=== PATIENT | female | born 1960 | race Caucasian/White ===

== ENCOUNTER 2017-02-09 15:05 | Emergency (ER) | payer OTHER ==
[~2017-02-09] VITALS: Ht 172.7 cm; Wt 73.5 kg
[~2017-02-09 15:05] MED LIST: BACTRIM DS 8001 TAB PO
--- NOTE | 2017-02-09 16:53 | ED UPPER/LOWER EXTREMITY COMPL ---
History of Present Illness General Chief Complaint: Upper Extremity Injury Stated Complaint: INFECTION ON RIGHT ARM Source: patient Exam Limitations: no limitations Vital Signs & Intake/Output Vital Signs & Intake/Output Vital Signs Date Time Temp Pulse Resp B/P Pulse O2 O2 Flow FiO2 Ox Delivery Rate 02/09 1701 98.1 92 15 102/64 98 Room Air Room Air 02/09 1516 97.0 112 16 110/63 92 Room Air Allergies Coded Allergies: MDX - PCN (penicillin) (PCN (PENICILLIN)) (Intermediate, REACTION A KID 07/29) Reconcile Medications Sulfamethoxazole/Trimethopri (Bactrim Ds 800 MG-160 MG) 1 TAB TAB 1 TAB PO BID SKIN INFECTION Triage Note: PT STATES SHE FELL LAST WEEK AND SHE CUT HER RIGHT ARM AND STATES SHE THINKS IT MAY BE GETTING INFECTED Triage Nurses Notes Reviewed? yes Onset: Abrupt Duration: constant Timing: recent history Severity: moderate Severity Numbers: 5 Pain/Injury Location: Left: Elbow. Method of Injury: fall No Modifying Factors: none HPI: Patient is a 56-year-old female with a past medical history of hep C who presents emergency room stating that approximately 9-10 days ago she was ambulating at night tripped on a 2 x 4 striking the the bilateral aspects of her forearms to the ground where she suffered a skin abrasion to her right lateral aspect of her forearm patient has been applying bacitracin once a day and applied few treatments of peroxide and is concerned of infection Does state that is discharging ORANGE COLOR tinted discharge (FRANCISCO [facility]) Past History Travel History Traveled to [place] past 21 day No Medical History Any Pertinent Medical History? see below for history Neurological: NEUROPATHY Cardiovascular: FEMORAL STENTS Gastrointestinal: COLON POLYPS Hepatic: cirrhosis, hepatitis C Surgical History Surgical History: non-contributory Psychosocial History What is your primary language Burkinan Tobacco Use: Current Daily Use Daily Tobacco Use Amount/Type: => 5 Cigarettes daily ETOH Use: denies use Illicit Drug Use: denies illicit drug use Family History Hx Contributory? No (FRANCISCO [facility]) Review of Systems Review of Systems Constitutional: Reports: no symptoms. EENTM: Reports: no symptoms. Respiratory: Reports: no symptoms. Cardiovascular: Reports: no symptoms. Gastrointestinal/Abdominal: Reports: no symptoms. Genitourinary: Reports: no symptoms. Musculoskeletal: Reports: no symptoms. Skin: Reports: see HPI. Neurological/Psychological: Reports: no symptoms. Hematologic/Endocrine: Reports: no symptoms. Immunological: Reports: no symptoms. All Other Systems: Reviewed and Negative (FRANCISCO [facility]) Physical Exam Physical Exam General Appearance: well developed/nourished, no apparent distress, alert, awake Neurologic/Tendon: normal sensation, normal motor functions, normal tendon functions, responds to pain, no evidence tendon injury, no pulse deficit Skin: warm/dry Lymphatic: no anterior cervical eboni Comments: Well-developed well-nourished no apparent distress. HEENT: Atraumatic, extraocular motion intact Neck: Supple, no lymphadenopathy Back: Nontender Respiratory: No respiratory distress Extremities: No edema, full range of motion Right elbow-see diagram below full active range of motion Neuro: Alert and oriented x3 Psych: Mood affect normal, normal memory normal judgment. Diagram Right Arm Back 1) 3 cm x 3 cm superficial well-healing skin abrasion noted No purulent discharge no active bleeding and no surrounding erythema warmth (FRANCISCO [facility]) Progress Differential Diagnosis: arterial insufficiency, compartment syndrome, contusion, dislocation, gout, septic arthritis, sprain, tendon injury Plan of Care: The skin abrasion of the right elbow looks well-healing and no concern at this time of infection. I applied TEFLA AND KERLEX to the wounds and instructed patient on wound care techniques and to return to emergency room if signs of infection occur and they will comply (FRANCISCO [facility]) Departure Departure Disposition: HOME OR SELF CARE Condition: Stable Clinical Impression Primary Impression: Abrasion of skin Referrals: UNKNOWN (PCP/Family) Additional Instructions: As discussed TRY to leave area dry and clean and open as much as possible to improve healing. Please APPLY THE bandages provided to YOU IN the emergency room if needed for discharge. If symptoms worsen or if you notice signs of infection redness, pain, swelling, discharge return to emergency room Follow-up with your primary care doctor in one week for recheck of symptoms. Departure Forms: Customer Survey General Discharge Information ([facility]CO [facility]) PA/INCIDENT RESPONSE ANALYST Co-Sign Statement Statement: ED Attending supervision documentation- [] I saw and evaluated the patient. I have also reviewed all the pertinent lab results and diagnostic results. I agree with the findings and the plan of care as documented in the PA's/INCIDENT RESPONSE ANALYST's documentation. [X] I have reviewed the ED Record and agree with the PA's/INCIDENT RESPONSE ANALYST's documentation. [] Additions or exceptions (if any) to the PAs/INCIDENT RESPONSE ANALYST's note and plan are summarized below: [] (ZAKI HOUSE,ABDIEL)
[2017-02-09 17:01] VITALS: BP 102/64
== END 2017-02-09 17:14 ==
LOC: ERH 15:05
DX: S50.811A Abrasion of right forearm, initial encounter (principal); S50.812A Abrasion of left forearm, initial encounter; W18.09XA Striking against other object with subsequent fall, initial encounter; Y93.01 Activity, walking, marching and hiking; Y92.9 Unspecified place or not applicable

== ENCOUNTER 2017-03-22 11:58 | Emergency (ER) | payer OTHER ==
[~2017-03-22] VITALS: Ht 172.7 cm; Wt 72.6 kg
--- NOTE | 2017-03-22 12:02 | ED GENERAL ADULT ---
History of Present Illness General Chief Complaint: Altered Mental Status Stated Complaint: BIBA FOR ALTERED MENTAL STATUS Source: family, old records, EMS Exam Limitations: confusion Vital Signs & Intake/Output Vital Signs & Intake/Output Vital Signs Date Time Temp Pulse Resp B/P B/P Pulse O2 O2 Flow FiO2 Mean Ox Delivery Rate 03/22 1418 96.8 99 18 125/58 98 03/22 1257 96 Room Air 03/22 1200 96.3 93 18 116/66 100 Room Air Allergies Coded Allergies: Penicillins (Intermediate, REACTION A KID 03/22/17) Reconcile Medications Sulfamethoxazole/Trimethopri (Bactrim Ds 800 MG-160 MG) 1 TAB TAB 1 TAB PO BID SKIN INFECTION Triage Nurses Notes Reviewed? yes HPI: Patient brought in by ambulance for acute confusion and potential lower GI bleed. Patient has a history of hepatitis C cirrhosis. Patient lives at home with her daughter. Her daughter noticed that she was confused today and the bathroom smelled like it did when she had a lower GI bleed in the past. The daughter did not notice any blood in the toilet. The daughter states that she did not see her at all yesterday but her boyfriend states that she seemed a little confused yesterday. Patient is unable to provide any history. Past History Travel History Traveled to [place] past 21 day No Medical History Any Pertinent Medical History? see below for history Neurological: NEUROPATHY Cardiovascular: FEMORAL STENTS Gastrointestinal: COLON POLYPS Hepatic: cirrhosis, hepatitis C Surgical History Surgical History: non-contributory Psychosocial History What is your primary language Armenian Tobacco Use: Current Daily Use ETOH Use: occasional use Illicit Drug Use: PAST USE Family History Hx Contributory? No ED Sepsis Exam Date of Focused Sepsis Exam: 03/22/17 Time of Focused Sepsis Exam: 1329 Sepsis Cardiac Exam: Regular Rate/Rhythm Sepsis Resp Exam: CTA Sepsis Cap Refill Exam: <2 Sec Sepsis Peripheral Pulse Exam: Normal Sepsis Peripheral Pulse Location: Radial Sepsis Skin Color Exam: Normal for Ethnicity Skin Temp/Moisture Exam: Warm/Dry Review of Systems Review of Systems Constitutional: Reports: see HPI. GI: Reports: see HPI. Neurological/Psychological: Reports: see HPI. Physical Exam Physical Exam General Appearance: anxious, severe distress Head: atraumatic Eyes: Bilateral: PERRL. Ears, Nose, Throat: normal pharynx, normal ENT inspection, hearing grossly normal Neck: normal inspection, supple, full range of motion Respiratory: normal breath sounds, chest non-tender, no respiratory distress, lungs clear Cardiovascular: regular rate/rhythm, normal peripheral pulses Gastrointestinal: normal bowel sounds, soft, tenderness (DIFFUSLEY) Rectal: DARK TARRY STOOL, HEME POSITIVE Neurologic/Psych: disoriented x 3 Skin: intact, warm/dry Core Measures ACS in differential dx? No CVA/TIA Diagnosis: No Severe Sepsis Present: No Septic Shock Present: No Progress Differential Diagnoses I considered the following diagnoses in my evaluation of the patient: [GI BLEED, HEPATIC FAILURE, SBP, SEPSIS] Plan of Care: Orders Procedure Date/time Status LACTIC ACID 03/22 1502 Active Restraint- Medical 03/22 1354 Active CULTURE,BODY FLUID 03/22 1350 Active BODY FLUID CELL COUNT 03/22 1350 Active BODY FLUID ALBUMIN 03/22 1350 Active BLOOD CULTURE 03/22 1305 Active Shelley, Insertion/Removal/Asses 03/22 1259 Active CULTURE,URINE 03/22 1259 Active URINE DRUGS OF ABUSE 03/22 1230 Complete Add-on Test (ER Only) 03/22 1227 Active PARTIAL THROMBOPLASTIN TIME 03/22 1216 Complete PROTHROMBIN TIME 03/22 1216 Complete Straight Cath 03/22 1202 Active URINALYSIS 03/22 1202 Complete TROPONIN LEVEL 03/22 1202 Complete AMMONIA 03/22 1202 Complete LIPASE 03/22 1202 Complete LACTIC ACID 03/22 1202 Complete ETHANOL 03/22 1202 Complete COMPREHENSIVE METABOLIC PANEL 03/22 1202 Complete CBC WITHOUT DIFFERENTIAL 03/22 1202 Complete AMYLASE 03/22 1202 Complete EKG 03/22 1202 Active TYPE & SCREEN (NOT X-MATCH) 03/22 1202 Complete Laboratory Tests 03/22/17 1350: Fluid WBC Pending, Fld Total RBCs Counted Pending 03/22/17 1350: Fluid Albumin Pending 03/22/17 1229: Urine Opiates Screen < 100.00, Methadone Screen > 735 H, Barbiturate Screen < 60, Ur Phencyclidine Scrn < 6.00, Amphetamines Screen < 100, U Benzodiazepines Scrn < 85, Urine Cocaine Screen < 50, Urine Cannabis Screen 53.50 H, Urinalysis LIGHT H, Urine Color DANTE, Urine Clarity CLEAR, Urine pH 6.5, Ur Specific [place] 1.015, Urine Protein TRACE H, Urine Ketones NEG, Urine Nitrite NEG, Urine Bilirubin NEG@ICTO, Urine Urobilinogen >=8.0 H, Ur Leukocyte Esterase TRACE H, Ur Microscopic SEDIMENT EXAMINED, Urine RBC 1-3, Urine WBC 10-15 H, Ur Epithelial Cells MANY H, Urine Bacteria MOD H, Urine Mucus RARE, Micro UA Comment , Urine Hemoglobin NEG, Urine Glucose NEG 03/22/17 1216: Anion Gap 11, Estimated GFR 51 L, BUN/Creatinine Ratio 19.1, Glucose 106 H, Lactic Acid 3.2 H, Calcium 8.5, Total Bilirubin 1.1, AST 31, ALT 33, Alkaline Phosphatase 139 H, Ammonia 129 H, Troponin I < 0.01, Total Protein 6.7, Albumin 3.0 L, Globulin 3.7, Albumin/Globulin Ratio 0.8 L, Amylase 35, Lipase 82, PT 13.9 H, INR 1.33 H, APTT 25, CBC w Diff NO MAN DIFF REQ, RBC 2.70 L, MCV 89.3, MCH 29.2, RDW 18.2 H, MPV 10.7 H, Gran % 69.9, Lymphocytes % 21.7, Monocytes % 6.2, Eosinophils % 1.7, Basophils % 0.5, Absolute Granulocytes 2.0, Absolute Lymphocytes 0.6 L, Absolute Monocytes 0.2, Absolute Eosinophils 0, Absolute Basophils 0, PUBS MCHC 32.7 L, Serum Alcohol < 10.0 Microbiology 03/22 1350 BODY FLUID: Body Fluid Culture - RECD 03/22 1350 BODY FLUID: Gram Stain - RECD 03/22 1324 BLOOD: Blood Culture - RECD 03/22 1307 BLOOD: Blood Culture - RECD 03/22 1259 URINE ROUT: Urine Culture - ORD Initial ED EKG: NSR, nonspecific ST T wave chg Comments: Discussed with gastroenterology at [facility], where she receives all of her treatment. They would like her transferred there for further evaluation. Departure Departure Disposition: OTHER GENERAL HOSPITAL (ACUTE) Condition: Guarded Clinical Impression Primary Impression: Hepatic encephalopathy Secondary Impressions: GI bleed Referrals: UNKNOWN (PCP/Family) Departure Forms: Customer Survey General Discharge Information Critical Care Note Critical Care Note Critical Care Time: mins: (75 MIN) ED Attending Observation Initial Observation Note: I have seen and personally examined CHUCK EMERY on 03/22/17 at 1317. I agree with the current emergency department documentation. The disposition (admission or discharge) is uncertain at this time, she needs a period of observation for the following reason(s): The ED Nurse caring for this patient has been personally informed as to what the patient is being observed for. patient is being observed for.
[2017-03-22 12:55] LABS: ABSOLUTE BASOPHIL COUNT 0 /CUMM (0.0-0.2); ABSOLUTE EOSINOPHIL COUNT 0 /CUMM (0.0-0.7); ABSOLUTE LYMPH COUNT 0.6 /CUMM (1.2-3.4); ABSOLUTE MONOCYTE COUNT 0.2 /CUMM (0.10-0.60); BASOPHIL % 0.5 % (0.0-2.0); EOSINOPHIL % 1.7 % (0-5); GRANULOCYTE % 69.9 % (42.2-75.2); HEMATOCRIT 24.1 % (37-47); MEAN CORPUSCULAR HGB 29.2 PG (27.0-31.0); MEAN CORPUSCULAR HGB CONC 32.7 G/DL (33.0-37.0); MEAN CORPUSCULAR VOLUME 89.3 FL (81.0-99.0); MEAN PLATELET VOLUME 10.7 FL (7.4-10.4); RBC DISTRIBUTION WIDTH 18.2 % (11.5-14.5); WHITE BLOOD CELL COUNT 2.8 /CUMM (4.8-10.8)
[2017-03-22 13:04] LABS: PT 13.9 SEC (9.4-12.5); PTT 25 SEC (25-37)
[2017-03-22 13:12] LABS: PLATELET COUNT 88 /CUMM (130-400)
[2017-03-22 16:13] VITALS: BP 123/67
== END 2017-03-22 16:11 | disposition short-term general hospital (02) ==
LOC: ERH 11:58
PROVIDERS: Emergency Medicine
DX: K72.90 Hepatic failure, unspecified without coma (principal); K92.2 Gastrointestinal hemorrhage, unspecified; F17.200 Nicotine dependence, unspecified, uncomplicated; F10.10 Alcohol abuse, uncomplicated; K74.60 Unspecified cirrhosis of liver; B19.20 Unspecified viral hepatitis C without hepatic coma
CPT/HCPCS: 87075; 80307; 81001; 87040; 87086; 93005; 93010; 96372; 96374; G0480; J0696